=== PATIENT | female | born 2000 | race Caucasian/White ===

== ENCOUNTER 2025-06-08 16:10 | Emergency (ER) | payer OTHER, SELFPAY ==
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
[2025-06-08 16:18] VITALS: BP 130/75; PULSE 99; RESP 15; TEMP 36.4; O2SAT 98
[2025-06-08] MEDS: ACETAMINOPHEN 500 MG TABLET 1000 MG PO (16:57)
--- NOTE | 2025-06-08 17:01 | PC.NURSE ---
Pt states currently on menstrual cycle and uses control and certain she is not and would prefer to sign waiver than provide urine sample for test. CT made aware.
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
[2025-06-08 18:53] VITALS: BP 145/74; PULSE 82; RESP 18; O2SAT 100
== END 2025-06-08 18:54 | disposition home or self-care (01) ==
PROVIDERS: Emergency Provider Physician Assistant
DX: S16.1XXA Strain of muscle, fascia and tendon at neck level, initial encounter (principal); V49.50XA Passenger injured in collision with unspecified motor vehicles in traffic accident, initial encounter
CPT/HCPCS: 70450; 72125; 72128; 72131; 99284; A9270